=== PATIENT | male | born 1940 | race Caucasian/White ===

== ENCOUNTER 2018-01-06 16:30 | Emergency (ER) | payer MEDICARE, OTHER ==
[2018-01-06 17:24] LABS: BASOPHILS % 0.6 (0.0-1.5); EOSINOPHILS % 3.7 % (0.0-6.8); MEAN CORPUSCULAR HEMOGLOBIN 33.7 pg (28.0-34.0); MEAN CORPUSCULAR VOLUME 98.9 fl (80.0-100.0); MONOCYTES % 7.9 % (0.0-11.0); NEUTROPHILS # 2.1 # k/uL (1.4-7.7)
[2018-01-06 17:39] LABS: eGFR (African) > 60; eGFR (Non-African) > 60
--- NOTE | 2018-01-06 18:00 | ED Physician Documentation ---
General Adult - HISTORIAN Historian: patient - HPI Stated Complaint: Swelling from mid-thigh down of Rt leg, some weeping to ankle area Chief Complaint: General Adult Further Comments: yes (77 year old male patient presents with complaint of right leg swelling. Patient states he noticed the swelling one month ago, "but it went down", states swelling got worse a few days ago. Today with weeping. C /O mild SOB with exerction. Patient does not have primary care provider. No daily medications; prn flexeril and vicodin for "neck problem".) - ROS CONST: no problems EYES/ENT: none CVS/RESP: other (mild dyspnea) GI/: none MS/SKIN/LYMPH: none NEURO/PSYCH: denies: headache - PAST HX Past History: none Other History: other (c-spine spasms ) Allergies/Adverse Reactions: Allergies Allergy/AdvReac Type Severity Reaction Status Date / Time No Known Allergies Allergy Verified 01/06/18 16:55 Home Medications: Ambulatory Orders Medication Instructions Recorded Cyclobenzaprine HCl [Flexeril] 5 mg PO PRN PRN 01/06/18 Hydrocodone/Acetaminophen [Vicodin 1 tab PO PRN PRN 01/06/18 5-300 mg Tablet] - SOCIAL HX Smoking History: non-smoker - FAMILY HX Family History: No - VITAL SIGNS Vital Signs: Vital Signs Temp Pulse Resp BP Pulse Ox 98.1 F 92 H 18 143/90 94 01/06/18 16:31 01/06/18 16:31 01/06/18 16:31 01/06/18 16:31 01/06/18 16:31 - REVIEWED ASSESSMENTS Nursing Assessment Reviewed: Yes Vitals Reviewed: Yes Progress - Progress Progress: D DIMR 1008 -will progress with CT chest; ultrasound is not available to US right leg. CT results reviewed. Call to Dr Loomis regarding follow up care. Appointment made at [facility] for 8:00am; will call results to me. Patient does not have PCP at present. Patient started on Eliquis in ER. Discharged with Eliquis 5mg tab for in the morning. Reviewed all instructions with patient, verbalized understanding ED Results Lab/Radiology - Lab Results Lab Results: Lab Results 01/06/18 01/06/18 01/06/18 17:20 17:20 17:20 WBC 3.10 K/ul L K/ul (4.00-12.00) RBC 3.55 M/ul L M/ul (3.90-5.20) Hgb 12.0 g/dL g/dL (12.0-18.0) Hct 35.1 % L % (37.0-53.0) MCV 98.9 fl fl (80.0-100.0) MCH 33.7 pg pg (28.0-34.0) MCHC 34.1 g/dL g/dL (30.0-36.0) RDW 12.7 % % (11.3-14.3) Plt Count 167 K/mm3 K/mm3 (130-400) Neut % (Auto) 68.1 % % (39.0-79.0) Lymph % (Auto) 17.6 % % (16.0-50.0) Sharkey % (Auto) 7.9 % % (0.0-11.0) Eos % (Auto) 3.7 % % (0.0-6.8) Baso % (Auto) 0.6 (0.0-1.5) Neut # (Auto) 2.1 # k/uL # k/uL (1.4-7.7) Lymph # (Auto) 0.6 # k/uL # k/uL (0.6-4.0) Sharkey # (Auto) 0.2 # k/uL # k/uL (0.0-0.9) Eos # (Auto) 0.1 # k/uL # k/uL (0.0-0.6) Baso # (Auto) 0.0 # k/uL # k/uL (0.0-0.5) Reactive Lymphs % 2.0 % % (0.0-5.0) Reactive Lymphs # 0.1 # k/uL # k/uL (0.0-0.8) D-Dimer 1008 ng/mL H ng/mL (6.0-682) Sodium 141 mmol/L mmol/L (136-145) Potassium 4.0 mmol/L mmol/L (3.5-5.1) Chloride 100 mmol/L mmol/L (98-107) Carbon Dioxide 27 mmol/L mmol/L (22-30) BUN 10 mg/dL mg/dL (9-20) Creatinine 1.00 mg/dL mg/dL (0.66-1.25) Estimated Creat Clear 78 Est GFR ( Amer) > 60 (60 - ) Est GFR (Non-Af Amer) > 60 (60 - ) Glucose 91 mg/dL mg/dL (74-106) Calcium 9.4 mg/dL mg/dL (8.4-10.2) Total Bilirubin 0.9 mg/dL mg/dL (0.2-1.3) AST 40 U/L U/L (15-46) ALT 43 U/L U/L (13-69) Alkaline Phosphatase 77 U/L U/L (38-126) Total Protein 8.0 g/dL g/dL (6.3-8.2) Albumin 4.3 g/dL g/dL (3.5-5.0) - Orders Orders: ED Orders Category Date Time Status Place IV Lock 1T Care 01/06/18 16:[address] PE CHEST Stat Exams 01/06/18 Ordered CBC/PLATELET/DIFF Stat Lab 01/06/18 17:20 Completed CMP Stat Lab 01/06/18 17:20 Completed D DIMER Stat Lab 01/06/18 17:20 Completed General Adult Physical Exam - PHYSICAL EXAM GENERAL APPEARANCE: moderate distress EENT: eye inspection normal, ENT inspection normal, pharynx normal, no signs of dehydration, LAURY, no nystagmus, TM's nml RESPIRATORY: no resp distress, chest non-tender, breath sounds normal CVS: reg rate & rhythm, heart sounds normal, equal pulses, no murmur, no gallop , PMI nml, no JVD, no friction rub, 24 ABDOMEN: soft, no organomegaly, normal bowel sounds, no abdominal bruit, no distension BACK: normal inspection, no CVA tenderness SKIN: normal color, other (right lower leg with juan, red appearace; mid calf distally; pin point area of weeping noted in Rt lower leg; just proximan to ankle. ) EXTREMITIES: edema (entire right leg with edema; 2+ right ankle; 1+ knee distally; Rt DP 2+, PT 1+), other (gait unsteady) NEURO: oriented X3, CN's nml as tested, motor nml, sensation nml, mood/affect nml Discharge Clincal Impression: Edema of right lower extremity, Rule out DVT Additional Instructions: Take 2 Eliquis tablets in the morning 8:00am appointment Arrive at 7:30 for paperwork Take your order with you. Appointment for Ultrasound of Right lower leg [facility] [address] [place] [address] Condition: Stable Disposition: 01 HOME, SELF-CARE Decision to Admit: NO Decision Time: 19:31
--- NOTE | 2018-01-06 18:51 | Diagnostic Imaging Report ---
ENID XIAO (E [employer]) - ER [facility] [id number] [facility].[address] [id number] Report Submission Date: Jan 06, 2018 6:46:58 PM CDT Patient Study Name: SOFIA WHITESIDE Date: Jan 06, 2018 6:10:51 PM CDT Modality Type: CT\SR Gender: M Description: CT PE CHEST : 38 Institution: [facility] Physician: ENID XIAO (CITLALLI) - ER CT chest angiography with IV contrast followed by 3D mips reformatted images Clinical history: Chest pain with elevation d-dimer 88 mL omnipaque Radiation dose DLP 533 Small lymph nodes in the superior mediastinum probably inflammatory lymph nodes. No aortic dissection. no significant size visible pulmonary embolus. There are coronary artery calcifications . no visible pericardiac or pleural effusions. No visible acute infiltrates or pleural effusion . mild asthma. Impression: No pulmonary embolus or aortic dissection. Mediastinal lymph nodes could be inflammatory. No acute infiltrates or pleural effusion. Moderate thoracic spondylosis. Mild asthma. Electronically signed on Jan 06, 2018 6:46:58 PM CDT by: Saw UMANZOR
[2018-01-06] MEDS ORDERED: APIXABAN 2.5 MG TABLET PO ONE (19:12)
[2018-01-06] MEDS ORDERED: APIXABAN 2.5 MG TABLET PO SCH (20:00)
[2018-01-06 21:03] VITALS: BP 134/80
== END 2018-01-06 19:15 | disposition home or self-care (01) ==
LOC: ED 16:30
DX: R60.0 Localized edema (principal)
CPT/HCPCS: 71275; 80053; 85025; 85379; 85610; 85730; 99283; Q9967; S1016